=== PATIENT | female | born 1990 | race Caucasian/White ===

== ENCOUNTER 2021-12-03 10:50 | Inpatient (IN) | payer OTHER ==
[~2021-12-03] VITALS: Ht 177.8 cm; Wt 81.8 kg
--- NOTE | 2021-12-03 12:12 | NUR ---
URINE SENT TO LAB AT THIS TIME
[2021-12-03 12:15] LABS: ALANINE AMINOTRANSFERASE 24 U/L (12-78); ALBUMIN 4.1 G/DL (3.4-5.0); ALBUMIN/GLOBULIN RATIO 0.9 (1.1-1.5); ALKALINE PHOSPHATASE 53 IU/L (46-116); ANION GAP 14 (8-16); ASPARTATE AMINO TRANSFERASE 24 U/L (10-37); BLOOD UREA NITROGEN 8 MG/DL (7-18); BUN/CREATININE RATIO 10.7 (6.6-38.0); CALCIUM 9.3 MG/DL (8.5-10.1); CHLORIDE 100 MMOL/L (99-107); CREATININE 0.75 MG/DL (0.40-0.90); GLUCOSE 118 MG/DL (70-104); SODIUM 136 MMOL/L (135-145); TOTAL CARBON DIOXIDE 22.4 MMOL/L (24-32); TOTAL PROTEIN 8.8 G/DL (6.4-8.2); eGFR 90 ML/MIN
[2021-12-03 12:17] LABS: POTASSIUM 3.9 MMOL/L (3.5-5.1)
[2021-12-03 12:20] LABS: URINE HCG NEGATIVE (NEG)
[2021-12-03 12:21] LABS: CLARITY,URINE SLIGHTLY CLOUDY (Clear); COLOR,URINE YELLOW (Yellow); GLUCOSE, URINE NEGATIVE (Neg); KETONES,URINE 15 mg/dl (Neg); LEUKOCYTE ESTERASE ,URINE NEGATIVE (Neg); NITRITES, URINE NEGATIVE (Neg); OCCULT BLOOD,URINE TRACE-INTACT (Neg); PROTEIN,URINE TRACE mg/dl (Neg); UROBILINOGEN,URINE 0.2 E.U/dL (0.2-1.0)
[2021-12-03 12:29] LABS: UA COLLECTION TYPE CLN CATCH MIDSTREAM
[2021-12-03 12:30] LABS: BACTERIA,URINE FEW /HPF (Neg); MUCUS STRANDS FEW /LPF (Neg); RBC,URINE 0-2 /HPF (0-2); SQUAMOUS EPITHELIAL CELL,UR FEW /LPF (FEW); WBC,URINE 0-4 /HPF (0-4)
[2021-12-03 12:37] LABS: LIPASE 2642 U/L (73-393)
[2021-12-03 13:09] LABS: BASOPHILS # (AUTO) 0.1 X10'3 (0-0.2); BASOPHILS % (AUTO) 0.6 % (0-1); EOSINOPHILS % (AUTO) 0.1 % (0-6); HEMATOCRIT 33.8 % (35.0-45.0); HEMOGLOBIN 11.4 g/dl (12.0-16.0); LYMPHOCYTES # (AUTO) 0.9 X10'3 (1.1-4.8); MEAN CORPUSCULAR HEMOGLOBIN 29.6 PG (27.0-31.0); MEAN CORPUSCULAR HGB CONC 33.7 g/dL (33.0-36.5); MEAN CORPUSCULAR VOLUME 87.7 FL (78-98); MEAN PLATELET VOLUME 7.6 FL (7.4-10.4); MONOCYTES # (AUTO) 0.6 X10'3 (0-0.9); MONOCYTES % (AUTO) 5.9 % (2-12); NEUTROPHILS # (AUTO) 8.2 X10'3 (1.8-7.7); NEUTROPHILS % (AUTO) 84.4 % (42-75); PLATELET COUNT 279 X10'3 (140-440); RED BLOOD COUNT 3.85 X10'6 (4.20-5.60); RED CELL DISTRIBUTION WIDTH 16.7 % (11.5-14.5); WHITE BLOOD COUNT 9.7 X10'3 (4.5-11.0)
[2021-12-03] MEDS ORDERED: proCHLORperazine 10 MG/2 ml inj IV ONE (13:35)
[2021-12-03] MEDS ORDERED: pantoprazole 40 MG vial IV ONE (13:35)
[2021-12-03] MEDS ORDERED: normal saline 1000ML IV soln IVB ONE (13:35)
[2021-12-03] MEDS: morphine 2 MG/ML inj. syringe IV PRN ×4 (14:01→15:16)
--- NOTE | 2021-12-03 14:59 | NUR ---
dr marrero at bedside.
[2021-12-03] MEDS ORDERED: metoclopramide 5 mg/ml inj IV PRN (15:05)
[2021-12-03] MEDS ORDERED: HYDROcodone/acetaminophen 5mg/325mg tablet PO PRN (15:05)
[2021-12-03] MEDS ORDERED: morphine 2 MG/ML inj. syringe IV PRN ×2 (15:05)
[2021-12-03] MEDS ORDERED: mag hydrox/Alum hydrox/simeth 30ml oral suspension PO PRN (15:05)
[2021-12-03] MEDS ORDERED: dextrose 5%-1/2 normal saline 1,000 ML IV SCH (15:05)
[2021-12-03] MEDS ORDERED: acetaminophen 325mg tablet PO PRN ×2 (15:05)
[2021-12-03] MEDS ORDERED: HYDROcodone/acetaminophen 10/325mg tab PO PRN (15:05)
[2021-12-03] MEDS ORDERED: magnesium hydroxide 30ml (MOM) UD suspension PO PRN (15:05)
[2021-12-03] MEDS ORDERED: ondansetron/PF 4mg/2ml inj IV PRN (15:05)
--- NOTE | 2021-12-03 15:26 | NUR ---
COVID SWAB SENT TO LAB AT THIS TIME
--- NOTE | 2021-12-03 16:54 | NUR ---
PATIENT REQUESTING TO SPEAK WITH HOSPITALIST AT THIS TIME, STATES SHE WISHES TO LEAVE AMA
[2021-12-03 17:14] VITALS: BP 148/103
--- NOTE | 2021-12-03 17:36 | NUR ---
patient eloped at this time. IV d/c prior to elopement. patient advised of all risks and complications associated with leaving, up to and including . patient voiced understanding and eloped with her from ED
[2021-12-03] MEDS ORDERED: pantoprazole 40MG/NS 100ML BAG 100 ML IV ONE (20:00)
[2021-12-03] MEDS ORDERED: docusate sod 100mg capsule PO SCH (20:00)
== END 2021-12-04 08:18 | disposition left against medical advice (07) | DRG 438 ==
LOC: ER 10:52 → ED HOLD 15:08
PROVIDERS: ADMIT Internal Medicine; ATTEND Internal Medicine
DX: Q45.3 Other congenital malformations of pancreas and pancreatic duct (principal); K85.90 Acute pancreatitis without necrosis or infection, unspecified; Z20.822 Contact with and (suspected) exposure to COVID-19; J45.909 Unspecified asthma, uncomplicated; R19.7 Diarrhea, unspecified; Z87.442 Personal history of urinary calculi; Z88.0 Allergy status to penicillin
CPT/HCPCS: 36415; 71045; 80053; 81001; 81025; 83690; 85025; 87635; 96365; 96375; 99285; C9113; G0378; J0780; J2270; J7030; J7042